=== PATIENT | female | born 1945 | race Caucasian/White ===

== ENCOUNTER → 2016-07-18 | Outpatient (CLI) | payer MEDICARE ==
[~2016-07-18] MED LIST: ALLO100T PO; ASPI81TA2 PO; BIMA2.5D OP; CALC-98 PO; CHOL100013 PO; DENO60DI SQ; ESOM20CA PO; GLUC1CAP48 PO; LEVO25TA4 PO; LOSA25TA4 PO; LUTE6CAP3 PO; MECL12.52 PO; OMEG300C PO; POTA99TA PO; PROP1DRO OP; ROPI0.252 PO; SOLI5TAB PO; TRAM50TA PO; TRIA1CAP3 PO; VERA240C2 PO
--- NOTE | 2016-07-18 16:19 | RAD ---
Lumbar spine, 3 views, 07/18/2016: History: Pain Comparison is made to a study from 02/06/2014. There is a mild lumbar scoliosis. The lumbar vertebral heights are well-maintained. There is chronic disc space narrowing and marginal spurring at L1-2 and L2-3. The lower lumbar disc spaces are fairly well preserved. There are mild scattered degenerative changes involving facet joints. There is a moderate amount of gas and stool in the colon. IMPRESSION: 1. Lumbar scoliosis with moderate multilevel degenerative change. 2. No acute bony abnormality is detected.
== END | disposition home or self-care (01) ==
LOC: DXRADRC 15:52
PROVIDERS: ATTEND Nurse Practitioner Family
DX: M54.5 Low back pain (principal)
CPT/HCPCS: 72100

== ENCOUNTER → 2016-11-11 | Outpatient (CLI) | payer MEDICARE ==
[~2016-11-11] MED LIST changes: +ASPI-630 PO; -ASPI81TA2 PO; -SOLI5TAB PO; +SOLI5TAB2 PO
--- NOTE | 2016-11-11 16:36 | RAD ---
INDICATION: Left leg swelling COMPARISON: None. TECHNIQUE: Grayscale, color and doppler ultrasound images were obtained of the left lower extremity venous vasculature. LEFT: No thrombus identified in the common femoral vein, femoral vein, popliteal vein or visualized calf veins. IMPRESSION: 1. No thrombus identified in deep venous system of the left lower extremity. 2. There is some fluid anterior to the left knee. Could be from joint effusion.
== END | disposition home or self-care (01) ==
LOC: US 15:46
PROVIDERS: ATTEND Nurse Practitioner Family
DX: M79.89 Other specified soft tissue disorders (principal)
CPT/HCPCS: 93971

== ENCOUNTER → 2016-12-16 | Outpatient (CLI) | payer MEDICARE, BC ==
--- NOTE | 2016-12-16 12:13 | RAD ---
Lumbar x-rays Indication: 71-year-old female with lumbar back pain in the right side for one day. Fall. Technique: 3 views of the lumbar spine Comparison: Prior studies from 07/18/2016 Findings: Stable mild scoliosis of the lumbar spine. No compression deformities. Significant intervertebral disc space narrowing with endplate sclerosis noted at L1-L2, L2-L3 compatible with degenerative disc disease. Moderate colonic stool burden. SI joints within normal limits. Minimally displaced fracture of the right 10th rib noted. Impression: 1. Minimally displaced fracture of the right 10th rib. Correlate with focal tenderness. 2. Mild lumbar scoliosis with moderate degenerative disease at L1-L2, L2-L3. No compression deformities. MTDD
== END | disposition home or self-care (01) ==
LOC: DXRADRC 07:54
PROVIDERS: ATTEND Physician Assistant Medical
DX: M51.36 Other intervertebral disc degeneration, lumbar region (principal); M41.86 Other forms of scoliosis, lumbar region; S22.31XA Fracture of one rib, right side, initial encounter for closed fracture; W19.XXXA Unspecified fall, initial encounter; Y93.89 Activity, other specified; Y92.89 Other specified places as the place of occurrence of the external cause; Y99.8 Other external cause status
CPT/HCPCS: 72100

== ENCOUNTER → 2017-02-12 | Outpatient (CLI) | payer MEDICARE, BC ==
[~2017-02-12] MED LIST changes: -PROP1DRO OP; +PROP1DRO6 OP
--- NOTE | 2017-02-12 16:29 | RAD ---
Indication follow-up rib fractures. Films of right ribs were obtained. Note is made of an examination of the lumbar spine 12/16/2016 demonstrating fracture of the right 10th rib. There are minimally distracted fractures seen associated with the lateral ninth, 10th and 11th ribs. In retrospect there is a fracture involving the 11th rib on the examination 12/16/2016. The ninth rib is not optimally visualized on that prior study. IMPRESSION: Healing fractures on the right 9 through 11.
== END | disposition home or self-care (01) ==
LOC: DXRADRC 14:28
PROVIDERS: ATTEND Nurse Practitioner Family
DX: S22.41XD Multiple fractures of ribs, right side, subsequent encounter for fracture with routine healing (principal); X58.XXXD Exposure to other specified factors, subsequent encounter
CPT/HCPCS: 71100

== ENCOUNTER → 2017-02-23 | Outpatient (CLI) | payer MEDICARE, BC ==
--- NOTE | 2017-02-23 14:21 | RAD ---
DATE: 02/23/2017 EXAM: MAMMO GINNY SCREENING BILATERAL HISTORY: Routine screening COMPARISON: 02/22/2016 This study was interpreted with the benefit of Computerized Aided Detection (CAD). The breast parenchyma shows scattered fibroglandular densities. Breast parenchyma level B. FINDINGS: 2-D and 3-D tomosynthesis imaging was performed in CC and MLO projections. The fibroglandular densities are nodular in character. No new or enlarging breast densities are seen. Benign type calcifications are present in both breasts. No suspicious microcalcifications have developed. IMPRESSION: Stable mammograms without evidence of malignancy. BI-RADS CATEGORY: 2 BENIGN FINDING(S) RECOMMENDED FOLLOW-UP: 12M 12 MONTH FOLLOW-UP PQRS compliance statement: Patient information was entered into a reminder system with a target due date for the next mammogram. Mammography is a sensitive method for finding small breast cancers, but it does not detect them all and is not a substitute for careful clinical examination. A negative mammogram does not negate a clinically suspicious finding and should not result in delay in biopsying a clinically suspicious abnormality. "Our facility is accredited by the [employer] Mammography [employer]."
== END | disposition home or self-care (01) ==
LOC: MAMMO 08:25
PROVIDERS: ATTEND Nurse Practitioner Family
DX: Z12.31 Encounter for screening mammogram for malignant neoplasm of breast (principal)
CPT/HCPCS: 77063; G0202; 77067

== ENCOUNTER → 2017-03-04 | Outpatient (CLI) | payer MEDICARE ==
--- NOTE | 2017-03-04 09:15 | RAD ---
EXAM: Dual energy x-ray absorptiometry (DEXA). HISTORY: Post menopausal screening. TECHNIQUE: Dual energy x-ray absorptiometry of the lumbar spine and the right hip was performed. Calculation of bone mineral density based on standard deviations above or below the expected young adult normal value (T-score) was completed. FINDINGS: The average bone mineral density associated with L1-L4 is 1.5-4 g/cm^2, corresponding with a T-score of 2.7. The lowest measured T score is -1.6 and L4. Evaluate other levels is elevated by degenerative sclerosis. The average total bone mineral density associated with the right hip is 0.680 g/cm^2, corresponding with a T-score of -3.0. No comparison examinations are available. IMPRESSION: 1. Osteoporosis. Fracture risk is high. Note: Definitions established by the World Health Organization: 1. Normal: T-score is -1.0 or above the expected mean for a young adult. 2. Osteopenia: T-score is between -1.0 and -2.5. 3. Osteoporosis: T-score is -2.5 or below.
--- NOTE | 2017-03-04 09:18 | RAD ---
EXAM: Renal/retroperitonal ultrasound HISTORY: Flank pain. COMPARISON: None. FINDINGS: Ultrasound of the kidneys, bladder and retroperitoneum was performed. The right kidney measures 9.1 cm. Cortical thickness and echogenicity are preserved. There is no hydronephrosis. The left kidney measures 9.3 cm. Cortical thickness and echogenicity are preserved. There is no hydronephrosis. Images of the bladder reveal no gross abnormality. Both ureteral jets are visualized. IMPRESSION: 1. Unremarkable examination of the kidneys. No hydronephrosis.
== END | disposition home or self-care (01) ==
LOC: US 08:14
PROVIDERS: ATTEND Nurse Practitioner Family
DX: M81.0 Age-related osteoporosis without current pathological fracture (principal); R10.9 Unspecified abdominal pain; M54.5 Low back pain; Z78.0 Asymptomatic menopausal state
CPT/HCPCS: 76770; 77080

== ENCOUNTER → 2017-06-18 | Outpatient (CLI) | payer MEDICARE ==
--- NOTE | 2017-06-18 16:50 | RAD ---
Three-view study of both shoulders History: Bilateral shoulder pain with popping for years. Findings: Left shoulder: No acute fracture or dislocation or osteolytic process is seen. There is mild primary degenerative osteoarthritis of the AC joint. There is moderate primary degenerative osteoarthritis of the left glenohumeral joint. Right shoulder: No acute fracture or dislocation or osteolytic process is seen. There is mild primary degenerative osteoarthritis of the AC joint. Moderate primary degenerative osteoarthritis of the glenohumeral joint is seen. IMPRESSION: Primary degenerative osteoarthritis of both shoulder.
== END | disposition home or self-care (01) ==
LOC: DXRAD 15:52
PROVIDERS: ATTEND Nurse Practitioner Family
DX: M19.012 Primary osteoarthritis, left shoulder (principal); M19.011 Primary osteoarthritis, right shoulder
CPT/HCPCS: 73030

== ENCOUNTER → 2018-02-24 | Outpatient (CLI) | payer MEDICARE ==
[~2018-02-24] MED LIST changes: -LOSA25TA4 PO; +LOSA25TA5 PO; -ROPI0.252 PO; +ROPI0.254 PO
--- NOTE | 2018-02-26 09:03 | RAD ---
DATE: 02/24/2018 EXAM: MAMMO GINNY SCREENING BILATERAL HISTORY: Routine screening COMPARISON: 02/23/2017 This study was interpreted with the benefit of Computerized Aided Detection (CAD). Breast Density: HETERO The breast parenchyma is heterogenously dense, which could reduce sensitivity of mammography. Breast parenchyma level C. FINDINGS: 2-D and 3-D tomosynthesis imaging was performed in CC and MLO projections. The fibroglandular pattern is nodular in character. No spiculated mass or architectural distortion is seen. There are scattered benign type calcifications. No suspicious microcalcifications have developed. IMPRESSION: Stable mammograms without evidence of malignancy. BI-RADS CATEGORY: 2 BENIGN FINDING(S) RECOMMENDED FOLLOW-UP: 12M 12 MONTH FOLLOW-UP PQRS compliance statement: Patient information was entered into a reminder system with a target due date for the next mammogram. Mammography is a sensitive method for finding small breast cancers, but it does not detect them all and is not a substitute for careful clinical examination. A negative mammogram does not negate a clinically suspicious finding and should not result in delay in biopsying a clinically suspicious abnormality. "Our facility is accredited by the [employer] Mammography Program."
== END | disposition home or self-care (01) ==
LOC: MAMMO 08:54
PROVIDERS: ATTEND Physician Assistant Medical
DX: Z12.31 Encounter for screening mammogram for malignant neoplasm of breast (principal)
CPT/HCPCS: 77063; 77067

== ENCOUNTER → 2018-12-20 | Outpatient (CLI) | payer MEDICARE ==
[~2018-12-20] MED LIST changes: +LOSA25TA11 PO; -LOSA25TA5 PO
--- NOTE | 2018-12-20 10:04 | RAD ---
EXAM: Right knee, 3 views. HISTORY: Pain. COMPARISON: None. FINDINGS: 3 views of the right knee are obtained. There is medial compartment joint space narrowing with subchondral sclerosis. There is moderate tricompartmental spurring. There is bony remodeling involving the lateral tibial plateau. There is a large joint effusion. IMPRESSION: 1. Moderate to severe lateral and moderate medial and patellofemoral compartment osteoarthritis of the right knee with lateral compartment bony remodeling. 2. Large joint effusion. Electronically signed by: Nicole Pabon MD (12/20/2018 10:01 AM) [id number]
== END | disposition home or self-care (01) ==
LOC: DXRAD 09:21
PROVIDERS: ATTEND Physician Assistant Medical
DX: M17.11 Unilateral primary osteoarthritis, right knee (principal); M25.461 Effusion, right knee
CPT/HCPCS: 73562

== ENCOUNTER → 2019-02-28 | Outpatient (CLI) | payer MEDICARE ==
--- NOTE | 2019-02-28 10:06 | RAD ---
DATE: 02/28/2019. EXAM: MAMMO GINNY SCREENING BILATERAL. HISTORY: Routine mammographic screening. COMPARISON: 02/24/2018. This study was interpreted with the benefit of Computerized Aided Detection (CAD). FINDINGS: Breast Density: HETERO The breast parenchyma is heterogenously dense, which could reduce sensitivity of mammography. Breast parenchyma level C.. Scattered calcifications are benign. There are no suspicious masses, microcalcifications or architectural distortion. The parenchymal pattern is stable. BI-RADS CATEGORY: 2 BENIGN FINDING(S). RECOMMENDED FOLLOW-UP: 12M 12 MONTH FOLLOW-UP. PQRS compliance statement: Patient information was entered into a reminder system with a target due date 02/29/2020 for the next mammogram. Mammography is a sensitive method for finding small breast cancers, but it does not detect them all and is not a substitute for careful clinical examination. A negative mammogram does not negate a clinically suspicious finding and should not result in delay in biopsying a clinically suspicious abnormality. "Our facility is accredited by the [employer] Mammography Program."
== END | disposition home or self-care (01) ==
LOC: MAMMO 08:52
PROVIDERS: ATTEND Physician Assistant Medical
DX: Z12.31 Encounter for screening mammogram for malignant neoplasm of breast (principal); N64.89 Other specified disorders of breast
CPT/HCPCS: 77063; 77067

== ENCOUNTER → 2019-07-07 | Outpatient (CLI) | payer MEDICARE ==
[~2019-07-07] MED LIST changes: -MECL12.52 PO; +MECL12.573 PO
--- NOTE | 2019-07-07 09:16 | RAD ---
EXAMINATION: VENOUS LOWER EXT BILATERAL HISTORY: Bilateral lower extremity swelling COMPARISON/CORRELATION: None FINDINGS: Bilateral lower extremity duplex venous ultrasound exam was performed. Grayscale, color Doppler, and spectral Doppler imaging was performed. Compression and augmentation was performed. The right common femoral vein, superficial femoral vein, popliteal vein, and saphenofemoral junction are normal with no evidence of deep venous thrombus. The visualized calf veins are unremarkable. Normal compressibility and augmentation is evident. The left common femoral vein, superficial femoral vein, popliteal vein, and saphenofemoral junction are normal with no evidence of deep venous thrombus. The visualized calf veins are unremarkable. Normal compressibility and augmentation is evident. IMPRESSION: Normal bilateral lower extremity duplex ultrasound exam. No evidence of deep venous thrombus involving the lower extremities. Electronically signed by: Armando Gonzalez MD (07/07/2019 9:14 AM) [id number]
[2019-07-07 10:49] LABS: BASO # 0.1 x10^3/uL (0.0-0.2); BASO % 1 % (0-3); EOS # 0.2 x10^3/uL (0.0-0.7); EOS % 2 % (0-3); HEMOGLOBIN 11.8 g/dL (12.0-15.5); LYMPH # 1.5 x10^3/uL (1.0-4.8); LYMPH % 14 % (24-48); MEAN CORPUSCULAR HEMOGLOBIN 27 pg (25-35); MEAN CORPUSCULAR HGB CONC 32 g/dL (31-37); MEAN CORPUSCULAR VOLUME 83 fL (79-100); MONO # 0.7 x10^3/uL (0.0-1.1); MONO % 7 % (0-9); NEUT # 7.8 x10^3uL (1.8-7.7); NEUT % 76 % (31-73); PLATELET COUNT 403 x10^3/uL (140-400); RED BLOOD COUNT 4.45 x10^6/uL (3.50-5.40); RED CELL DISTRIBUTION WIDTH 16.3 % (11.5-14.5); WHITE BLOOD COUNT 10.2 x10^3/uL (4.0-11.0)
[2019-07-07 11:08] LABS: ALBUMIN 3.4 g/dL (3.4-5.0); CALCIUM 9.1 mg/dL (8.5-10.1); CREATININE 0.8 mg/dL (0.6-1.0); GFR 69.9; POTASSIUM 3.6 mmol/L (3.5-5.1); TOTAL BILIRUBIN 0.3 mg/dL (0.2-1.0); TOTAL PROTEIN 6.9 g/dL (6.4-8.2)
[2019-07-07 17:13] LABS: FREE T4 1.28 ng/dL (0.76-1.46); THYROID STIM HORMONE (TSH) 2.213 uIU/mL (0.358-3.740)
== END ==
LOC: PMG 07:56
PROVIDERS: ATTEND Physician Assistant
DX: R22.43 Localized swelling, mass and lump, lower limb, bilateral (principal)
CPT/HCPCS: 36415; 80053; 83880; 84439; 84443; 85025; 85379; 93970

== ENCOUNTER → 2020-03-01 | Outpatient (CLI) | payer MEDICARE ==
--- NOTE | 2020-03-01 11:49 | RAD ---
EXAM: Bilateral digital screening mammogram with tomosynthesis. HISTORY: 74-year-old female presents for screening mammography. TECHNIQUE: Full-field digital craniocaudal and mediolateral oblique 2D and 3D tomosynthesis images of both breasts are obtained for evaluation. Computer aided detection was applied. COMPARISON: 02/28/2019 BREAST PARENCHYMAL DENSITY: Level C - Heterogeneously dense. FINDINGS: There is no new suspicious mass, microcalcification or region of architectural distortion. IMPRESSION: BI-RADS Category 2: Benign finding(s). RECOMMENDATION: Annual mammography is recommended. If your mammogram demonstrates that you have dense breast tissue, which could hide abnormalities, and if you have other risk factors for breast cancer that have been identified, you might benefit from supplemental screening tests that may be suggested by your ordering physician. Dense breast tissue, in and of itself, is a relatively common condition. This information is not provided to cause undue concern, but rather to raise your awareness and to promote discussion with your physician regarding the presence of other risk factors, in addition to dense breast tissue. A report of your mammography results will be sent to you and your physician. You should contact your physician if you have any questions or concerns regarding this report. Mammography is a sensitive method for finding small breast cancers, but it does not detect them all and is not a substitute for careful clinical examination. A negative mammogram does not negate a clinically suspicious finding and should not result in delay in biopsying a clinically suspicious abnormality. PQRS compliance statement - Patient information was entered into a reminder system with a target due date for the next mammogram. "Our facility is accredited by the [employer] Mammography Program." Electronically signed by: Nicole Pabon MD (03/01/2020 11:46 AM) [id number]
== END ==
LOC: MAMMO 10:24
PROVIDERS: ATTEND Physician Assistant Medical
DX: Z12.31 Encounter for screening mammogram for malignant neoplasm of breast (principal)
CPT/HCPCS: 77063; 77067

== ENCOUNTER → 2020-09-17 | Outpatient (CLI) | payer MEDICARE ==
[~2020-09-17] MED LIST changes: -MECL12.573 PO; +MECL12.582 PO
--- NOTE | 2020-09-17 13:32 | RAD ---
EXAM: Cervical spine, 6 views. HISTORY: Pain. COMPARISON: None. FINDINGS: Frontal, lateral, bilateral oblique and odontoid views of the cervical spine are obtained. There is cervical kyphosis centered at C5. There is minimal anterolisthesis of C3 on C4 and C4 on C5. There is degenerative endplate remodeling with disc space narrowing and osteophytosis at the lower c ervical levels. There is multilevel facet and uncovertebral arthropathy. IMPRESSION: 1. Multilevel degenerative change throughout the cervical spine, primarily at the mid lower cervical levels. 2. Cervical kyphosis and mild degenerative listhesis at multiple levels. Electronically signed by: Nicole Pabon MD (09/17/2020 1:30 PM) [id number]
== END ==
LOC: RAD 12:10
PROVIDERS: ATTEND Physician Assistant Medical
DX: M47.812 Spondylosis without myelopathy or radiculopathy, cervical region (principal); M43.12 Spondylolisthesis, cervical region
CPT/HCPCS: 72050

== ENCOUNTER → 2020-10-11 | Outpatient (CLI) | payer MEDICARE ==
--- NOTE | 2020-10-11 15:33 | RAD ---
DXA BONE DENSITY AXIAL History: Reason: SCREENING / Spl. Instructions: / History: Postmenopausal Comparison: March 14, 2017 TECHNIQUE: Dual energy x-ray absorptiometry of the lumbar spine and right hip was performed. T-score of average bone mineral density based was calculated based on standard deviations above or below the expected young adult normal value. Diagnostic definitions were established by the World [employer] zation. FINDINGS: The average bone mineral density associated with L1-L4 is 1.129 g/cm^2, corresponding with a T-score of -0.4. Decreased compared to prior. The average total bone mineral density associated with right hip is 0.748 g/cm^2, corresponding with a T-score of -1.7. Increased compared to prior. Isolated right femoral neck T score -2.3. Refer to the worksheets for full detail. IMPRESSION: 1. Osteopenia. Average bone mineral density yields a T-score between -1.0 and -2.5. Fracture risk is increased. 2. Increased bone mineral density within the right hip compared to prior. 3. Decreased bone mineral density within the lumbar spine compared to prior. Electronically signed by: Huey Torrez DO (10/11/2020 3:31 PM) [id number]
== END ==
LOC: DXRAD 10:03
DX: M85.80 Other specified disorders of bone density and structure, unspecified site (principal); M81.0 Age-related osteoporosis without current pathological fracture
CPT/HCPCS: 77080

== ENCOUNTER → 2020-12-12 | Outpatient (CLI) | payer MEDICARE ==
--- NOTE | 2020-12-12 14:27 | RAD ---
EXAM: Bilateral carotid duplex with waveform analysis. CLINICAL HISTORY: Reason: VISION CHANGES , HTN, DIZZINESS / Spl. Instructions: / History: . . TECHNIQUE: Longitudinal and transverse sonographic images of the bilateral carotid arteries was perfo rmed utilizing grayscale, color and spectral Doppler techniques. COMPARISON: None FINDINGS: Right Carotid: No visible stenosis or significant plaque. Left Carotid: No visible stenosis or significant plaque. Vertebrals: Antegrade flow bilaterally. Right: PSV CCA (cm/s): 114 PSV ICA (cm/s): 92 EDV ICA (cm/s): 26 PSV ECA (cm/s): 76 ICA/CCA Ratio: 1 Left: PSV CCA (cm/s): 98 PSV ICA (cm/s): 86 EDV ICA (cm/s): 22 PSV ECA (cm/s): 106 ICA/CCA Ratio: 1.2 IMPRESSION: Less than 50 percent stenosis of the ICA bilaterally. Consensus Panel Underwood-scale and Doppler US Criteria for Diagnosis of ICA Stenosis Degree of Stenosis (%) ICA PSV (Cm/sec) Plaque Estimate (%)* Normal <125 None <50 <125 <50 50-69 125-230 >50 >70 but < near occlusion >230 >50 Near occlusion High, low, or undetectable Visible Total occlusion Undetectable Visible, no detectable lumen *Plaque estimate (diameter reduction) with underwood-scale and color Doppler US Degree of Stenosis (%) ICA/CCA PSV Ratio ICA EDV (cm/sec) Normal <2.0 <40 <50 <2.0 <40 50-69 2.0-4.0 40-100 >70 but < near occlusion >4.0 >100 Near occlusion Variable Variable Total occlusion Not applicable Not applicable Electronically signed by: Fermin Huggins MD (12/12/2020 2:24 PM) [id number]
== END ==
LOC: US 09:00
PROVIDERS: ATTEND Physician Assistant Medical
DX: I65.23 Occlusion and stenosis of bilateral carotid arteries (principal); H53.9 Unspecified visual disturbance
CPT/HCPCS: 93880

== ENCOUNTER → 2021-03-08 | Outpatient (CLI) | payer MEDICARE ==
--- NOTE | 2021-03-08 16:32 | RAD ---
History: Routine Screening PROCEDURE: 3-D tomosynthesis was performed of the breasts bilaterally. 2-D C-view craniocaudal and mediolateral oblique digital mammograms were also generated. The images were also evaluated with i[employer]-aided detection and the CAD results were analyzed. Previous: Bilateral mammogram from 03/01/2020 and priors. FINDINGS: Density level B: There are scattered fibroglandular densities. There are no suspicious masses, suspic ious microcalcifications or areas of architectural distortion.Benign stable calcifications and glandu lar nodularities are seen in both breasts IMPRESSION: Benign mammogram. Patient information was entered into the [employer] reminder system with a target due date for the next screening mammogram . Routine annual screening mammogram in one year ad vised. BI-RADS Category 2: Benign. A mammogram does not have 100% sensitivity and therefore a negative imaging study should not delay fu rther work up of a suspicious abnormality. PQRS compliance statement: Patient information was entered into the [employer] reminder system with a ta rget due date for the next screening mammogram . Routine annual screening mammogram in one year advis ed. "Our facility is accredited by the [employer] Mammography Program." Electronically signed by: Heidi Hartmann MD (03/08/2021 4:30 PM) [id number]
== END ==
LOC: MAMMO 14:33
PROVIDERS: ATTEND Physician Assistant Medical
DX: Z12.31 Encounter for screening mammogram for malignant neoplasm of breast (principal)
CPT/HCPCS: 77063; 77067